=== PATIENT | female | born 2005 | race African-American/Black ===

== ENCOUNTER 2025-07-13 02:48 | Outpatient (CLI) | payer OTHER, SELFPAY | END 2025-07-13 02:49 | disposition home or self-care (01) | PROVIDERS: Visit Provider Family Medicine | DX: R45.851 Suicidal ideations (principal) | CPT/HCPCS: A0998 ==

== ENCOUNTER 2025-07-13 03:16 | Emergency (ER) | payer OTHER, SELFPAY ==
--- OUTSIDE RECORDS SUMMARY | 2025-05-06 14:00 | XMS_ITS ---
Author Organization [facility] [place] [id number] Address [address] [place] [address] Care Team Providers Care Medical Insurance Clerk Name Role Phone DESHAWN MARIE Primary Care Provider REASON FOR VISIT [facility] Social History Sex Assigned At : Social History Observation Description Sex Assigned At Female Encounters Encounter Location Date Provider Diagnosis [facility] [address] [place] [address] 05/06/2025 DESHAWN MARIE Plan Of Treatment Next Appt Details Provider Name:DESHAWN COBIAN, 08/20/2025 10:00:00 AM, [address] [place], [address], Provider Name:DESHAWN COBIAN, 05/09/2026 05:00:00 PM, [address] [place], [address], Progress Notes * JM GRAY DESTINDOB: 2005 (20 yo F)Acc No.[id number]:05/06/2025 Progress Notes Patient: JM PATRICIO Appointment Provider: Sol MARIE MD :2005 A ge:20 Y S ex:Female Date:05/06/2025 Address:[facility] [place], [id number] Subjective: * Chief Complaints: * 1 . WCC. * Medical History: * Ocular Surgical History: Objective: * Vitals: Assessment: Plan: * Treatment: Care Plan: * Problems: * Billing Information: * Visit Code: * Procedure Codes: * Electronic signature of DORI MARIE MD on 07/13/2025 at 04:17 AM EDT Sign off status: Pending * Appointment Provider: Sol MARIE MD Date: 0 05/06/2025 Generated for Printing/Faxing/eTransmitting on: 1 04:17 AM EDT
--- OUTSIDE RECORDS SUMMARY | 2025-07-13 03:18 | XMS_ITS | Patient Health Record ---
Author Organization [facility] Address [address] [place] [address] Care Team Providers Care Piggyback Clerk Name Role Phone DESHAWN MARIE Primary Care Provider Results Component Value Reference Range Notes LIPID PANEL, STANDARD (7600) Reviewed date:05/14/2025 01:26:22 PM Interpretation: Performing Lab:[id number], [id number] Bert Terrell MD Notes/Report: NON-FASTING NON-FASTING NON-FASTING NON-FASTING NON-FASTING NON-FASTING CHOLESTEROL, TOTAL 131 <200 mg/dL HDL CHOLESTEROL 47 > OR = 50 mg/dL TRIGLYCERIDES 34 <150 mg/dL LDL-CHOLESTEROL 74 Reference range: <100 Desirable range <100 mg/dL for primary prevention; <70 mg/dL for patients with CHD or diabetic patients with > or = 2 CHD risk factors. LDL-C is now calculated using the Gilbert-Cecille calculation, which is a validated novel method providing better accuracy than the Friedewald equation in the estimation of LDL-C. Gilbert SS et al. KENNETH. 2013;310(19): 8790-0273 (http://education.marker.to.Compliance 11/faq/FSA152) CHOL/HDLC RATIO 2.8 <5.0 (calc) NON HDL CHOLESTEROL 84 <130 mg/dL (calc) For patients with diabetes plus 1 major ASCVD risk factor, treating to a non-HDL-C goal of <100 mg/dL (LDL-C of <70 mg/dL) is considered a therapeutic option. COMPREHENSIVE METABOLIC PANAnna Singh (81096) Reviewed date:05/14/2025 01:26:22 PM Interpretation: Performing Lab:[facility][id number], [id number] Bert Terrell MD Notes/Report: NON-FASTING NON-FASTING NON-FASTING NON-FASTING NON-FASTING NON-FASTING GLUCOSE 81 65-99 mg/dL Fasting reference interval UREA NITROGEN (BUN) 8 7-25 mg/dL CREATININE 0.91 0.50-0.96 mg/dL EGFR 93 > OR = 60 mL/min/1.73m2 BUN/CREATININE RATIO SEE NOTE: 6-22 (calc) Not Reported: BUN and Creatinine are within reference range. SODIUM 137 135-146 mmol/L POTASSIUM 4.3 3.5-5.3 mmol/L CHLORIDE 104 98-110 mmol/L CARBON DIOXIDE 25 20-32 mmol/L CALCIUM 9.3 8.6-10.2 mg/dL PROTEIN, TOTAL 7.2 6.1-8.1 g/dL ALBUMIN 4.6 3.6-5.1 g/dL GLOBULIN 2.6 1.9-3.7 g/dL (calc) ALBUMIN/GLOBULIN RATIO 1.8 1.0-2.5 (calc) BILIRUBIN, TOTAL 0.4 0.2-1.2 mg/dL ALKALINE PHOSPHATASE 57 31-125 U/L AST 15 10-30 U/L ALT 10 6-29 U/L CBC (INCLUDES DIFF/PLT) (639 9) Reviewed date:05/14/2025 01:26:22 PM Interpretation: Performing Lab:[facility][id number], [id number] Bert Terrell MD Notes/Report: NON-FASTING NON-FASTING NON-FASTING NON-FASTING NON-FASTING NON-FASTING WHITE BLOOD CELL COUNT 7.0 3.8-10.8 Thousand/ uL RED BLOOD CELL COUNT 5.01 3.80-5.10 Million/uL HEMOGLOBIN 13.3 11.7-15.5 g/dL HEMATOCRIT 39.2 35.0-45.0 % MCV 78.2 80.0-100.0 fL MCH 26.5 27.0-33.0 pg MCHC 33.9 32.0-36.0 g/dL For adults, a slight decrease in the calculated MCHC value (in the range of 30 to 32 g/dL) is most likely not clinically significant; however, it should be interpreted with caution in correlation with other red cell parameters and the patient's clinical condition. RDW 13.7 11.0-15.0 % PLATELET COUNT 152 140-400 Thousand/uL MPV 11.0 7.5-12.5 fL ABSOLUTE NEUTROPHILS 4508 7398-8395 cells/uL ABSOLUTE LYMPHOCYTES 2502 076-7153 cells/uL ABSOLUTE MONOCYTES 490 200-950 cells/uL ABSOLUTE EOSINOPHILS 259 15-500 cells/uL ABSOLUTE BASOPHILS 63 0-200 cells/uL NEUTROPHILS 64.4 LYMPHOCYTES 24.0 MONOCYTES 7.0 EOSINOPHILS 3.7 BASOPHILS 0.9 HEMOGLOBIN A1c (496) Reviewed date:05/14/2025 01:26:22 PM Interpretation: Performing Lab:[facility]-[id number] [id number] Bert Terrell MD Notes/Report: NON-FASTING NON-FASTING NON-FASTING NON-FASTING NON-FASTING NON-FASTING HEMOGLOBIN A1c 5.0 <5.7 % For the purpose of screening for the presence of diabetes: <5.7% Consistent with the absence of diabetes 5.7-6.4% Consistent with increased risk for diabetes (prediabetes) > or =6.5% Consistent with diabetes This assay result is consistent with a decreased risk of diabetes. Currently, no consensus exists regarding use of hemoglobin A1c for diagnosis of diabetes in children. According to [place] Diabetes Association (ADA) guidelines, hemoglobin A1c <7.0% represents optimal control in non- diabetic patients. Different metrics may apply to specific patient populations. Standards of Medical Care in Diabetes(ADA). T4, FREE (866) Reviewed date:05/14/2025 01:26:22 PM Interpretation: Performing Lab:[facility]-[id number] [id number] Bert Terrell MD Notes/Report: NON-FASTING NON-FASTING NON-FASTING NON-FASTING NON-FASTING NON-FASTING T4, FREE 1.7 0.8-1.4 ng/dL TSH (899) Reviewed date:05/14/2025 01:26:22 PM Interpretation: Performing Lab:[facility], [id number], [id number] Bert Terrell MD Notes/Report: NON-FASTING NON-FASTING NON-FASTING NON-FASTING NON-FASTING NON-FASTING TSH 0.91 Reference Range > or = 20 Years 0.40-4.50 Ranges First trimester 0.26-2.66 Second trimester 0.55-2.73 Third trimester 0.43-2.91 Reason For Referral No Information Immunizations Vaccine Route Administration Date Status Comme nts HPV9 IM Intramuscular 05/06/2024 Administered Social History Sex Assigned At : Social History Observation Description Sex Assigned At Female Problems Problem Type SNOMED Code ICD Code Onset Dates Problem Status W/U Status Risk Notes Problem Morbid obesity (disorder) (714627408) Morbid (severe) obesity due to excess calories (E66.01) Active confirmed Problem Overweight (297635155) Overweight (E66.3) Active confirmed Vital Signs Heart Rate 69 /min 05/13/2025 Temperature 98 degrees Fahrenheit 05/13/2025 Respiratory Rate 18 /min 05/13/2025 Blood pressure diastolic 71 mm Hg 05/13/2025 Oximetry 98 % 05/13/2025 Weight-kg 81.74 kg 05/13/2025 Height 66.5 in 05/13/2025 Blood pressure systolic 111 mm Hg 05/13/2025 Weight 180.2 lbs 05/13/2025 BMI 28.65 kg/m2 05/13/2025 Encounters Encounter Location Date Provider Diagnosis [address] [address] 05/07/2025 DESHAWN MARIE Dietary counseling and surveillance Z71.3 ; Encounter for routine child health examination with abnormal findings Z00.121 ; Exercise counseling Z71.82 ; Body mass index [BMI] 28.0-28.9, adult Z68.28 ; Encounter for examination of eyes and vision without abnormal findings Z01.00 ; Encounter for examination of ears and hearing without abnormal findings Z01.10 ; Encounter for screening for depression Z13.31 ; Encounter for screening examination for other mental health and behavioral disorders Z13.39 and Overweight E66.[address] [address] 05/13/2025 DESHAWN CYNTHIA Encounter for routine child health examination with abnormal findings Z00.121 ; Overweight E66.3 and Encounter for screening for other disorder Z13.89 [facility] [address] [facility] [place] [address] 05/27/2025 DESHAWN MARIE Assessments Encounter Date Diagnosis (ICD Code) Assessment Notes Treatment Notes Treatment Clinical Notes Section Notes 05/07/2025 Encounter for routine child health examination with abnormal findings (ICD-10 - Z00.121) 05/07/2025 Dietary counseling and surveillance (ICD-10 - Z71.3) VACCINES ARE UP TO DATE 05/13/2025 Overweight (ICD-10 - E66.3) 05/13/2025 Encounter for routine child health examination with abnormal findings (ICD-10 - Z00.121) 05/13/2025 Encounter for screening for other disorder (ICD-10 - Z13.89) 05/07/2025 Exercise counseling (ICD-10 - Z71.82) 05/07/2025 Body mass index [BMI] 28.0-28.9, adult (ICD-10 - Z68.28) 05/07/2025 Encounter for examination of eyes and vision without abnormal findings (ICD-10 - Z01.00) 05/07/2025 Encounter for examination of ears and hearing without abnormal findings (ICD-10 - Z01.10) 05/07/2025 Encounter for screening for depression (ICD-10 - Z13.31) Handout with education was provided to parent WEIGHT CHECK OVERWEIGHT To help prevent excess weight gain in your child, you can: Set a good example. Make healthy eating and regular physical activity a family affair. Everyone will benefit and no one will feel singled out. Have healthy snacks available. Options include air-popped popcorn without butter, fruits with low-fat yogurt, baby carrots with hummus, or whole-grain cereal with low-fat milk. Offer new foods multiple times. Don't be discouraged if your child doesn't immediately like a new food. It usually takes multiple exposures to a food to gain acceptance. Choose nonfood rewards. Promising candy for good behavior is a bad idea. Be sure your child gets enough sleep. Some studies indicate that too little sleep may increase the risk of obesity. Sleep deprivation can cause hormonal imbalances that lead to increased appetite. Also, be sure your child sees the doctor for well-child checkups at least once a year. During this visit, the doctor measures your child's height and weight and calculates his or her BMI. A significant increase in your child's BMI percentile rank over one year may be a possible sign that your child is at risk of becoming overweight. 05/07/2025 Encounter for screening examination for other mental health and behavioral disorders (ICD-10 - Z13.39) 05/07/2025 Overweight (ICD-10 - E66.3) Plan Of Treatment Future Test Test Name Order Date LIPID PANEL, STANDARD (7600) 05/07/2025 COMPREHENSIVE METABOLIC PANEL (11218) CBC (INCLUDES DIFF/PLT) (6399) HEMOGLOBIN A1c (496) 05/07/2025 T4, FREE (866) 05/07/2025 TSH (899) 05/07/2025 Next Appt Details Provider Name:DESHAWN COBIAN, 08/20/2025 10:00:00 AM, [address] [place], [address], Provider Name:DESHAWN COBIAN, 05/09/2026 05:00:00 PM, [address] [place], [address], Insurance Providers Payer Name Payer Address Payer Phone Subscriber Number Group Number Insured Name Patient Relationship to Insured Coverage Start Date Coverage End Date [employer] O Isai Garcia [address] [address] [place] [address] [phone] [id number] JM GRAY Self - patient is the insured
[2025-07-13 03:29] VITALS: BP 116/79; PULSE 88; RESP 18; TEMP 37.1; O2SAT 97; BMI 25.8
--- NOTE | 2025-07-13 03:49 | ED.GENADULT ---
HPI - General Adult General Chief complaint: Psychiatric Problem/Disorder Stated complaint: mental health crisis Time Seen by Provider: 07/13/25 03:17 Source: patient Mode of arrival: ambulatory Limitations: no limitations History of Present Illness HPI narrative: 20-year-old female brought in by police for self-harm. Patient does have a history of cutting. States that she drank alcohol today, felt overwhelmed because her roommate is in the hospital and cut her left wrist and right and left thighs with a razor. Last time she cut herself was approximately 2 weeks ago. Patient denies any suicidal thoughts. She states that she did try to commit suicide around 2015, nothing since. She states that she had another family member recently been hospitalized and this was very stressful for her. She believes these are her triggers. She also states that the last time she cut herself 2 weeks ago alcohol was involved then also. She states that today after cutting herself she call the suicide hotline because she wanted somebody to talk to. She then felt guilty that she bothered people with the suicide hotline given that she was not suicidal and she instead called a friend in [place] who then called her best friend who lives at [place]. Her friend also called [employer] who then called the police. Patient did not feel that she needed to come in today. She dressed her own wounds. She states that she plans on going back to her room, taking it trazodone which she does at night for sleep and going to bed. She states that she does have a good support system including her friends that she call today in her best friend who is currently with her in the ER. Patient is originally from [facility]. She does have a therapist but has not seen the therapist no while as therapist getting her license changed. She does see a psychiatrist regularly, her next appointment is in 3 weeks. She tells me that she plans on calling the psychiatrist tomorrow morning to see if she can come in sooner. Related Data Home Medications ?Medication ?Instructions ?Recorded ?Confirmed budesonide-formoterol HFA 160 2 puff inhalation BID 02/04/25 02/04/25 mcg-4.5 mcg/actuation aerosol inhaler bupropion HCl 150 mg 24 hr tablet, 100 mg PO DAILY 07/13/25 07/13/25 extended release sertraline 100 mg tablet 100 mg PO DAILY 07/13/25 07/13/25 trazodone 50 mg tablet 50 mg PO DAILY PRN insomnia 07/13/25 07/13/25 Previous Rx's ?Medication ?Instructions ?Recorded prednisone 10 mg tablet 10 mg PO DIRECTED #30 tabs 02/04/25 Allergies Allergy/AdvReac Type Severity Reaction Status Date / Time peanut Allergy Severe Anaphylaxis Verified 07/13/25 03:47 shellfish derived Allergy Mild Anaphylaxis Verified 07/13/25 03:47 Review of Systems Status of ROS: Reports: 10 or more systems reviewed and unremarkable except as noted in History and below [facility] Medical History Asthma ?J45.909 - Unspecified asthma, uncomplicated (ICD-10) Social History Smoking Status: Current some day smoker What tobacco products do you use: cigarettes Do you use any of these nicotine containing products: Vaping Products How often do you have a drink containing alcohol: 2-4 times a month How many standard drinks containing alcohol do you have on a typical day: 3 or 4 How often do you have six or more drinks on one occasion: Weekly AUDIT-C Alcohol total score: 6 Non-prescribed substance use: marijuana (any form) service: No Exam Narrative: Exam Narrative: Well-nourished well-developed patient in no acute distress. Alert and oriented x3. Answers questions appropriately. Mood and affect are appropriate. Thoughts are goal oriented and rational. No tangential or magical thinking noted. Patient speaks in full sentences without needing to catch her breath. Speech is not slurred or pressured. She is cooperative. HEENT: Normocephalic atraumatic. Pupils are equally round reactive to light. Extraocular muscles are intact. Conjunctivae are moist without any icterus noted. Moist mucous membranes. Skin: Well perfused without any obvious rashes. Patient has multiple cuts on the anterior left wrist. These cuts are very superficial and already scabbed over. There is no gaping skin. She has a few smaller cuts on the right thigh again, very superficial already scabbed over, a couple on the left thigh as well. The cuts have already been cleaned and dressed by the patient. Const: Vital Signs, click to edit/add: Vital Signs - 24 hr 07/13/25 03:29 Temperature 98.7 F Pulse Rate [Right Pulse Oximeter] 88 Respiratory Rate 18 Blood Pressure [Ri ght Upper Arm] 116/79 Pulse Oximetry 97 Oxygen Delivery Me thod Room Air Course Course ED Course: As we were discussing discharge instructions, her best friend that was with her had a seizure in the room. Patient stated that this made her feel very uncomfortable and that while she was still not suicidal, her thoughts of self-harm certainly increased at that moment. We therefore had her speak to mental health pest control applicator who also felt that the patient was safe to go home at this time. Vital Signs Vital signs: Initial Vital Signs Temperature 98.7 F 07/13/25 03:29 Temperature Source Temporal Artery Scan 07/13/25 03:29 Pulse Rate 88 07/13/25 03:29 Pulse Rhythm Regular 07/13/25 03:29 Respiratory Rate 18 07/13/25 03:29 Blood Pressure 116/79 07/13/25 03:29 Blood Pressure Mean 91 07/13/25 03:29 Blood Pressure Position Sitting 07/13/25 03:29 Pulse Oximetry 97 07/13/25 03:29 Oxygen Delivery Method Room Air 07/13/25 03:29 Vital Signs Temperature 98.7 F 07/13/25 03:29 Pulse Rate 88 07/13/25 03:29 Respiratory Rate 18 07/13/25 03:29 Blood Pressure 116/79 07/13/25 03:29 Pulse Oximetry 97 07/13/25 03:29 Oxygen Delivery Method Room Air 07/13/25 03:29 Temperature 98.7 F 07/13/25 03:29 Pulse Rate 88 07/13/25 03:29 Respiratory Rate 18 07/13/25 03:29 Blood Pressure 116/79 07/13/25 03:29 Pulse Oximetry 97 07/13/25 03:29 Oxygen Delivery Method Room Air 07/13/25 03:29 Medical Decision Making MDM Narrative Medical decision making narrative: 20-year-old female with a history of self-injurious behavior, no suicidal thoughts or plans. I think at this time she is safe to go home. Safety plan is discussed. Appropriate phone numbers are given-patient already has all these phone numbers. Patient is clinically sober and appropriate. Discharge Plan Discharge Clinical Impression: Deliberate self-cutting Patient Disposition: Home, Self-Care Condition: Stable Additional Instructions: Talk to your psychiatrist during business hours today to discuss coming in sooner for a follow-up appointment. Prescriptions: No Action budesonide-formoterol 160-4.5 mcg/actuation HFA aerosol inhaler 2 puff inhalation BID prednisone 10 mg tablet 10 mg PO DIRECTED Qty: 30 0RF Rx Instructions: Take four (4) tablets by mouth on days 1-3. Take three (3) tablets by mouth on days 4-6. Take two (2) tablets by mouth on days 7-9. Take one (1) tablet by mouth on days 10-12. bupropion HCl 150 mg tablet extended release 24 hr 100 mg PO DAILY trazodone 50 mg tablet 50 mg PO DAILY PRN (Reason: insomnia) sertraline 100 mg tablet 100 mg PO DAILY Follow Up/Referrals: Provider,Not a Local [Primary Care Provider, Family Practice] Stand Alone Forms: [employer]th Info Instructions
== END 2025-07-13 05:42 | disposition home or self-care (01) ==
LOC: ED 04:14
PROVIDERS: Emergency Provider Family Medicine
DX: S60.912A Unspecified superficial injury of left wrist, initial encounter (principal); R45.88 Nonsuicidal self-harm; Z91.51 Personal history of suicidal behavior; W26.8XXA Contact with other sharp object(s), not elsewhere classified, initial encounter
CPT/HCPCS: 99284; 99285; Q3014

== ENCOUNTER 2025-08-24 21:10 | Emergency (ER) | payer OTHER, SELFPAY ==
[2025-08-24 21:14] VITALS: BP 123/84; PULSE 82; RESP 16; TEMP 36.8; O2SAT 96; BMI 24.9
--- NOTE | 2025-08-24 21:59 | ED.PSYCH ---
HPI - Psych General Time Seen by Provider: 21:59 Date Seen: 08/24/25 Chief Complaint: Psychiatric Problem/Disorder Stated Complaint: mental health Time Seen by Provider: 08/24/25 21:59 Source: patient Mode of arrival: ambulatory History of Present Illness HPI Narrative: Alethea is a 20 yo female who has a past medical history of depression, anxiety, BPD, asthma who presents the emergency department for mental health evaluation. Patient presents tonight with her roommate. Patient reported that she broke down, was spiraling, and have thoughts of wanting to kill herself. Patient reports that she has been feeling worthless, a burden, and was having continuous thoughts of suicide ideation and of ending it. Patient denies any specific plan. Patient states that she did self injury approximately 2 weeks ago. Patient reports main stressors are around a relationship with a male friend in which she reports she has could dependent on him. Patient states that he has been acting weird, distance, and occasionally ghosting her. Patient feels as if she needs his support and things get worse when she does not hear from him. Patient with no other medical complaints. Patient lives with roommate. Patient reports taking medications as directed. Related Data Home Medications ?Medication ?Instructions ?Recorded ?Confirmed budesonide-formoterol HFA 160 2 puff inhalation BID 02/04/25 02/04/25 mcg-4.5 mcg/actuation aerosol inhaler bupropion HCl 150 mg 24 hr tablet, 100 mg PO DAILY 07/13/25 07/13/25 extended release sertraline 100 mg tablet 100 mg PO DAILY 07/13/25 07/13/25 trazodone 50 mg tablet 50 mg PO DAILY PRN insomnia 07/13/25 07/13/25 lamotrigine 25 mg tablet mg PO 08/24/25 Previous Rx's ?Medication ?Instructions ?Recorded prednisone 10 mg tablet 10 mg PO DIRECTED #30 tabs 02/04/25 Allergies Allergy/AdvReac Type Severity Reaction Status Date / Time peanut Allergy Severe Anaphylaxis Verified 07/13/25 03:47 shellfish derived Allergy Mild Anaphylaxis Verified 07/13/25 03:47 Review of Systems Narrative: Past medical history, past surgical history, medications, allergies, family history, and social history were reviewed with the patient. No additional pertinent items. A medically appropriate review of systems was performed with pertinent positives and negatives noted in HPI, all other systems negative. [facility] Medical History Asthma ?J45.909 - Unspecified asthma, uncomplicated (ICD-10) Social History Smoking Status: Current some day smoker What tobacco products do you use: cigarettes Do you use any of these nicotine containing products: Vaping Products How often do you have a drink containing alcohol: 2-4 times a month How many standard drinks containing alcohol do you have on a typical day: 3 or 4 How often do you have six or more drinks on one occasion: Weekly AUDIT-C Alcohol total score: 6 Non-prescribed substance use: marijuana (any form) service: No Exam Narrative: Exam Narrative: General: Afebrile, no acute distress HEENT: Normocephalic, atraumatic, conjunctiva normal. MMM Neck: non-tender, supple Cardio: regular rate. regular rhythm Resp: Normal work of breathing, no respiratory distress, lungs clear bilaterally, no wheezing, rhonchi, rales Chest/Back: no visual signs of trauma, no midline tenderness, no CVA tenderness Abdomen: soft, non distension, no tenderness, no peritoneal signs Neuro: alert and fully oriented. CN II-XII grossly intact. Grossly normal strength and sensation in all extremities. MSK: no deformities. Normal range of motion Integumentary/Skin: healing superficial lacerations to left forearm, no active bleeding Psych: normal affect, normal behavior Const: Vital Signs, click to edit/add: Vital Signs - 24 hr 08/24/25 21:14 Temperature 98.3 F Pulse Rate [Pulse Oximeter] 82 Respiratory Rate 16 Blood Pressure [Ri ght Upper Arm] 123/84 Pulse Oximetry 96 Oxygen Delivery Me thod Room Air Course Vital Signs Vital signs: Initial Vital Signs Temperature 98.3 F 08/24/25 21:14 Temperature Source Temporal Artery Scan 08/24/25 21:14 Pulse Rate 82 08/24/25 21:14 Respiratory Rate 16 08/24/25 21:14 Blood Pressure 123/84 08/24/25 21:14 Blood Pressure Mean 97 08/24/25 21:14 Blood Pressure Position Sitting 08/24/25 21:14 Pulse Oximetry 96 08/24/25 21:14 Oxygen Delivery Method Room Air 08/24/25 21:14 Vital Signs Temperature 98.3 F 08/24/25 21:14 Pulse Rate 82 08/24/25 21:14 Respiratory Rate 16 08/24/25 21:14 Blood Pressure 123/84 08/24/25 21:14 Pulse Oximetry 96 08/24/25 21:14 Oxygen Delivery Method Room Air 08/24/25 21:14 Temperature 98.3 F 08/24/25 21:14 Pulse Rate 82 08/24/25 21:14 Respiratory Rate 16 08/24/25 21:14 Blood Pressure 123/84 08/24/25 21:14 Pulse Oximetry 96 08/24/25 21:14 Oxygen Delivery Method Room Air 08/24/25 21:14 MDM - Psych MDM Narrative Medical decision making narrative: Alethea is a 20 yo female who has a past medical history of asthma who presents the emergency department for mental health evaluation. Upon arrival patient is nontoxic appearing, afebrile, in distress. Patient here with worsening depression, suicidal ideation, thoughts of self-harm. Patient had mental health assessment done by florentin-[email or web address] Benitez. I discussed patient management with Eli. Patient reported thoughts of self-harm but denies any suicide ideation, plan, or intent. Patient reports stressors including feeling ignored by her male friend. Patient did state that she had some suicidal ideation a few days ago however currently does not have any suicide ideation and patient feels as if she is able to discharge with her roommate. Psychiatry also evaluated the patient. Collateral information was also obtained by patient's roommate Gely who states that the biggest concern was for making suicidal threats however patient has no specific plan. At this time I do not believe patient is holdable as she currently denies any suicide ideation, no plan to end her life. I do believe patient does have some worsening depression/exacerbation secondary to codependent relationship with this male friend. I do recommend outpatient follow-up as well as therapy. (DBT). Patient is already established with outpatient services. Plan for discharge with roommate and recommend outpatient follow-up for medication management as well as therapy services. Patient was able to participate in safety planning. Roommate is agreeable to help lock up all medications in the home as well as locking up sharp. Patient and roommate feel comfortable with discharge however strict return precautions discussed if worsening symptoms. Medical Records Attestation: I reviewed the patient's medical records. Discharge Plan Discharge Clinical Impression: Depression, Suicidal ideation Patient Disposition: Home, Self-Care Condition: Improved Additional Instructions: Please follow-up with your primary care provider as well as your outpatient providers for medication management and therapy services. Please call [phone], or return immediately to the emergency department if worsening symptoms, or suicidal/homicidal thoughts or plan. It was a pleasure taking care of you today. We hope you feel better soon. Prescriptions: No Action budesonide-formoterol 160-4.5 mcg/actuation HFA aerosol inhaler 2 puff inhalation BID prednisone 10 mg tablet 10 mg PO DIRECTED Qty: 30 0RF Rx Instructions: Take four (4) tablets by mouth on days 1-3. Take three (3) tablets by mouth on days 4-6. Take two (2) tablets by mouth on days 7-9. Take one (1) tablet by mouth on days 10-12. lamotrigine 25 mg tablet PO bupropion HCl 150 mg tablet extended release 24 hr 100 mg PO DAILY trazodone 50 mg tablet 50 mg PO DAILY PRN (Reason: insomnia) sertraline 100 mg tablet 100 mg PO DAILY Follow Up/Referrals: Provider,Not a Local [Primary Care Provider, Family Practice] Stand Alone Forms: [facility] Info Instructions
== END 2025-08-25 02:00 | disposition home or self-care (01) ==
PROVIDERS: Emergency Provider Emergency Medicine
DX: F32.A Depression, unspecified (principal); F17.210 Nicotine dependence, cigarettes, uncomplicated
CPT/HCPCS: 99285